=== PATIENT | female | born 1940 | race Caucasian/White ===

== ENCOUNTER → 2017-05-05 | Outpatient (CLI) | payer OTHER | LOC: BRMIMAGING 11:31 | PROVIDERS: ATTEND Family Medicine | DX: R07.1 Chest pain on breathing (principal); J40 Bronchitis, not specified as acute or chronic; I51.7 Cardiomegaly | CPT/HCPCS: 71020-PO ==

== ENCOUNTER → 2017-11-21 | Outpatient (CLI) | payer OTHER | LOC: BRMIMAGING 15:33 | PROVIDERS: ATTEND Physician Assistant Medical | DX: S82.141D Displaced bicondylar fracture of right tibia, subsequent encounter for closed fracture with routine healing (principal); M53.86 Other specified dorsopathies, lumbar region; M51.86 Other intervertebral disc disorders, lumbar region | CPT/HCPCS: 72100-PO; 73562-PO ==